=== PATIENT | female | born 1990 | race Caucasian/White ===

== ENCOUNTER 2021-06-28 12:26 | Emergency (ER) | payer OTHER ==
[~2021-06-28] VITALS: Ht 162.6 cm; Wt 59.1 kg
[2021-06-28 12:35] VITALS: BP 131/79
== END 2021-06-28 14:06 | disposition home or self-care (01) ==
LOC: EMS 12:37
DX: J02.9 Acute pharyngitis, unspecified (principal)
CPT/HCPCS: 86308; 87430; 99283